=== PATIENT | male | born 1980 | race Caucasian/White ===

== ENCOUNTER 2022-04-23 00:03 | Emergency (ER) | payer MEDICAID ==
[~2022-04-23] VITALS: Ht 185.4 cm; Wt 81.6 kg
[2022-04-23 00:10] VITALS: BP_SYST 132
[2022-04-23] MEDS ORDERED: MORPHINE 4 MG INJ. 4 MG/ML VIAL IM ONE (02:30)
[2022-04-23] MEDS ORDERED: DOCU-144 PO (02:38)
[2022-04-23] MEDS ORDERED: IBUP-1971 PO (02:38)
[2022-04-23] MEDS ORDERED: HYDR-3917 PO ×2 (02:38→02:44)
[2022-04-23] MEDS ORDERED: HYDC2.5% TP (02:38)
[2022-04-23 02:57] VITALS: BP_SYST 115
== END 2022-04-23 02:55 | disposition home or self-care (01) ==
LOC: SED 00:03
DX: K64.5 Perianal venous thrombosis (principal)
CPT/HCPCS: 96372; 99283; J2270